=== PATIENT | male | born 1990 | race Caucasian/White ===

== ENCOUNTER 2023-01-12 14:12 | Emergency (ER) | payer OTHER, BC, SELFPAY ==
[2023-01-12 14:15] VITALS: BP 152/103; PULSE 136; RESP 18; TEMP 36.4; O2SAT 99; BMI 34.7
--- NOTE | 2023-01-12 15:35 | EKG12_ITS ---
Test Reason : Blood Pressure : / mmHG Vent. Rate : 125 BPM Atrial Rate : 125 BPM P-R Int : 142 ms QRS Dur : 086 ms QT Int : 308 ms P-R-T Axes : 039 -59 027 degrees QTc Int : 444 ms Sinus tachycardia Left axis deviation Inferior infarct , age undetermined Abnormal ECG Confirmed by JHON WATTS, JANI ([id number]), news copy editor JENNIFER LOPEZ ([id number]) on 01/15/2023 11:29:39 AM Referred By: Confirmed By:MIRANDA FERREIRA MD
--- NOTE | 2023-01-12 15:36 | EX.ED.DYSGE1 ---
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 He was done with what he was testing. He excellently touched a clamp with his right hand and thinks he was electrocuted with the right hand. This occurred around 130 today. No LOC. No trauma. Says he has some tingling in his right hand but otherwise no complaints. No chest pain. No exit wound outside of potential his right hand. Prior similar symptoms: No Recent Illness/Hospitalization: No PFSH PFSH Medical History no medical history no medical history Allergy/AdvReac Type Severity Reaction Status Date / Time No Known Allergies Allergy Verified 01/12/23 14:17 Family History no significant family his no significant family history Surgical History no surgical history no surgical history Social History Smoking Status: Never smoker ROS ROS ED ROS Narrative Denies. Review of Systems ROS Unobtainable: Denies due to encephalopathy Constitutional Constitutional ED: Denies chills or fever(s) Eyes Eyes: Denies blurry vision ENT ENT ED: Denies ear pain Cardiovascular Cardiovascular: Denies chest pain Respiratory/Chest Respiratory/Chest: Denies cough or dyspnea Gastrointestinal Gastrointestinal: Denies abdominal pain Genitourinary Genitourinary ED: Denies dysuria or hematuria Musculoskeletal Musculoskeletal: Denies arthralgias Integumentary Denies abscess Neurologic Neurologic: Denies headache(s) Psychiatric Psychiatric: Denies anxiety or depression Endocrine Endocrinology: Denies cold intolerance Hematologic/Lymphatic Hematologic/Lymphatic: Reports none Allergic/Immunologic Allergic/Immunologic ED: Denies mouth swelling or tongue swelling EXAM Physical Exam Narrative Exam Narrative: 31-year-old male no acute distress vital signs stable afebrile. Initial blood pressure elevated 151/ heart tachycardic rate about 130 no murmur. She is hemodynamically malaise. Thick neck nontender no lymphadenopathy. Lungs clear. Chest wall nontender. Abdomen soft nontender. Moving all 4 extremities. Neurovascular intact. 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 Normal cap refill. Normal range of motion. No swelling. There may be a tiny exit wound on the radial side of his right hand just proximal to his MCP of the index finger. He has full flexion extension. No swelling. No burn. Neurologically he is awake alert. Const Vital Signs: 01/12/23 14:15 01/12/23 15:34 Temperature 97.5 F L Temperature Source Temporal Pulse Rate 136 H Respiratory Rate 18 Respiratory Effort Normal Non-Labored Respiratory Pattern Normal Blood Pressure 152/103 H Blood Pressure Mean 119 Pulse Ox 99 Oxygen Delivery Method Room Air Positive well nourished and well developed; Negative for obese, cachectic, contractures or unkempt General Appearance ED: well developed and NAD; Negative for unkempt, cachectic, contractures, cyanotic, diaphoretic or pallor Nutritional Appearance: Negative for cachectic or obese HEENT Reports moist mucous membranes; Denies dry mucous membranes Negative for trauma or tenderness Mouth ED: No dry mucous membranes Mouth: No dry mucous membranes Eyes PERRL and EOMs intact bilaterally General Eye ED: Negative for pale conjunctiva, scleral icterus or other Neck no lymphadenopathy, supple and no JVD General: Negative for tenderness Lymph Lymphatic: Negative for other Chest Wall inspection of chest normal and palpation of chest normal Chest: Negative for other Resp normal respiratory effort and clear to auscultation bilaterally Effort and Inspection: Negative for retractions Auscultation: Negative for rales, rhonchi or wheezes Cardio regular rate, regular rhythm, S1 normal heart sound, S2 normal heart sound and no murmurs Palpation: Negative for palpable S3 Rate: Negative for bradycardia Rhythm: Negative for abnormal rhythm GI normal to inspection, nondistended, normoactive bowel sounds, non-tender, non-distended and no masses Inspection: Negative for abdominal distention Auscultation: normoactive bowel sounds Palpation: soft; Negative for tender or guarding Back/Spine no CVA tenderness General Back: Negative for CVA tenderness Cervical Spine: Negative for cervical spine tenderness Thoracic Spine / Upper Back: Negative for thoracic spinal tenderness or paraspinal muscle tenderness Lumbar Spine / Lower Back: Negative for lumbar spinal tenderness Extremity normal to inspection Extremity Narrative: Full range of motion right hand. Possible small exit wound on the radial side of the hand. No burn. Full range of motion. No swelling. Neurovascular intact. Normal needle valve operator strength. General Extremety ED: Negative for edema or tenderness General Extremity: Negative for edema Neuro oriented x3, CN's II-XII intact bilaterally and no sensory deficits noted Sensorium / Orientation: alert; Negative for orientation impaired, lethargic or stuporous Motor Exam: strength 5/5 throughout Psych mental status grossly normal Appearance: Negative for unkempt Attitude: No agitated Skin no rashes or lesions noted, no wounds and skin turgor normal General Skin Exam: elasticity normal; Negative for jaundice or pallor Lesions: No lesion noted Rashes: No rashes noted Trauma: Negative for abrasion Wounds: Negative for wounds noted MDM MDM MDM Narrative Medical decision making narrative: 32-year-old male, Worker's Comp., electrocuted right hand. Very benign exam. There is no swelling or tenderness to the hand. It is EKG obtained. Normal rhythm. He will be discharged. Repeat exam patient is doing well at 4:20 PM on repeat exam. He is resting comfortably. Will be discharged home. History & Record Review Discussion w/independent historian: EMS personnel and Patient Rhythm Strip Rhythm Strip: Sinus Tach Rate: 125 Ectopy: None EKG Initial EKG: Attestation: I personally reviewed and interpreted this EKG as follows: Interpretation: No Acute Injury Pattern and Sinus Tachycardia Comments: Sinus tachycardia rate of 125 no acute signs of CO, ischemia or dysrhythmia. Normal EKG. Prior EKG tracings: not available for review Prior: No Prior Discharge Plan Triage Chief Complaint: General Illness ED Provider: Marciano Peña Dx/Rx/DC Orders Clinical Impression: Electric injury, Encounter related to worker's compensation claim Instructions: ED Electrical Injury Primary Care Provider: ALLISON HERNANDEZ Referrals: Corporate,Care [Group of Physicians] - As Needed Town Doctor,Out of [Non-Staff] - Activity Restrictions/Additional Instructions: Tylenol and/or Motrin for pain. Follow-up with . Disposition Disposition: Home, Self Care
[2023-01-12 16:14] VITALS: BP 140/72
== END 2023-01-12 17:07 | disposition home or self-care (01) ==
PROVIDERS: Emergency Provider Emergency Medicine; Visit Provider Emergency Medicine
DX: T75.4XXA Electrocution, initial encounter (principal); X58.XXXA Exposure to other specified factors, initial encounter
CPT/HCPCS: 93005; 99282